=== PATIENT | male | born 1960 | race Caucasian/White ===

== ENCOUNTER → 2017-04-05 | Day surgery (SDC) | payer OTHER ==
[2017-03-31 14:15] VITALS: BMI 36.0
--- NOTE | 2017-03-31 14:52 | PAT Medication Instructions ---
Service Date Mar 31, 2017. Current Home Medication List Fluticasone Propionate (Nasal) (Flonase Allergy Relief), 1 DOSE BRYAN UD PRN for SINUS CONGESTION Gemfibrozil (Lopid), 1 TAB PO BID Hydrochlorothiazide (Hydrochlorothiazide), 12.5 MG PO QAM Omeprazole (Prilosec), 40 MG PO QAM Medication Instructions For Your Scheduled Surgery - Hold the following medications 24 hours prior to surgery: Gemfibrozil (Lopid), 1 TAB PO BID - Hold the following medications the morning of surgery: Hydrochlorothiazide (Hydrochlorothiazide), 12.5 MG PO QAM - Take the following medications the morning of surgery with a sip of water: Omeprazole (Prilosec), 40 MG PO QAM Fluticasone Propionate (Nasal) (Flonase Allergy Relief), 1 DOSE BRYAN UD PRN for SINUS CONGESTION (if needed) If you have any questions please call us at [phone] or [phone] or [phone]
[~2017-04-05] VITALS: Ht 177.8 cm; Wt 113.2 kg
[~2017-04-05] MED LIST: ACETAMINOPHEN 325 MG TAB PO PRN; ATROPINE SULFATE 0.1 MG/ML 5ML SYR IV PRN; BACITRACIN OINT 15 GM TUBE ONE; BUPIVACAINE 0.5 % 5 MG/1 ML MPF 30ML VIAL ONE; CEFAZOLIN 2000 MG/60 ML D5W IV SCH; CEFAZOLIN IV 2,000 MG/60 ML D5W IV ONE; CONRAY 60% 50 ML VIAL ONE; D5W AND 1/2NSS + 20MEQ KCL 1,000 ML IV SCH; DEXAMETHASONE SOD INJ 4 MG/ML VIAL ONE; ESMOLOL HCL 10 MG/ML 10 ML VIAL ONE; EpHEDrine SULFATE INJ 50 MG/ML AMP IV PRN; FENTANYL CITRATE INJ 50 MCG/1 ML 2 ML VIAL ONE; FLUMAZENIL 0.1 MG/1 ML 10 ML VIAL IV PRN; FLUT0.15 NAE; GEMF600T3 PO; GLYCOPYRROLATE INJ 0.2 MG/ML VIAL ONE; HYDR25TA5 PO; HYDROmorphone INJ 1 MG/ML SYR IV PRN; LABETALOL HCL IV 5 MG/ML 20ML IV ONE; LABETALOL HCL IV 5 MG/ML 20ML IV PRN; LACTATED RINGER'S 1000ML 1,000 ML IV SCH; LIDOCAINE HCL 1% 20 ML VIAL ONE; LIDOCAINE HCL 2% 2 ML VIAL (20MG/ML) ONE; MIDAZOLAM HCL 1 MG/ML 2ML VIAL ONE; NALOXONE HCL 0.4 MG/1 ML VIAL/CARP IV PRN; NEOSTIGMINE METHYLSULFATE 5 MG/5 ML SYR ONE; ONDANSETRON INJ 2 MG/ML 2 ML VIAL IV PRN; ONDANSETRON INJ 2 MG/ML 2 ML VIAL ONE; OXYC-57 PO; OXYCODONE/ACETAMINOPHEN 5-325 TAB PO PRN; PRLSR20 PO; PROMETHAZINE HCL INJ 12.5 MG in SODIUM CHLORIDE 0.9% 50ML 50 ML IV PRN; PROPOFOL IV EMULSION 10 MG/ML 20 ML VIAL IV ONE; ROCURONIUM BROMIDE 10 MG/ML 5 ML VIAL IV ONE; SUCCINYLCHOLINE CHLORIDE 20 MG/ML 10 ML VIAL IV ONE
[2017-04-05 06:30] VITALS: BP 157/99; PULSE 110; TEMP 37; O2SAT 94; Ht 177.8 cm; Wt 113.2 kg
--- NOTE | 2017-04-05 07:38 | History & Physical Bridge Note ---
H&P Re-Evaluation Bridge Note: I have examined the patient, reviewed the History & Physical and in the interval since the performance of the History & Physical I have noted the following changes of clinical significance: No changes noted
--- NOTE | 2017-04-05 09:18 | [facility] Post Operative Brief Note ---
Immediate Operative Summary Operative Date Apr 05, 2017. Pre-Operative Diagnosis Chronic Cholecystitis, dysfunction of gallbladder disease Post-Operative Diagnosis same Procedure(s) Performed Laparoscopic Cholecystectomy, lysis of adhesion of omental to liver Surgeon Dr. Marsh Circular Knife Cutter Machine Surgeon(s) surgical pathologist Estimated Blood Loss 10 ML Findings chronic cholecystitis, omental to adhesion liver Fluids (cc crystalloids) 1000ml Specimens a. gallbladder Drains none Anesthesia general Complication(s) None Disposition Recovery Room / PACU
--- NOTE | 2017-04-05 09:26 | Discharge Instructions ---
Discharge Instructions Date of Service Apr 05, 2017. Visit Reason for Visit: Chronic Cholecystitis Discharge Discharge Diagnosis / Problem: S/P laparoscopic cholecystectomy Discharge Goals Goal(s): Decrease discomfort, Improve function Activity Recommendations Activity Limitations: per Instructions/Follow-up section Lifting Limitations: no more than 25 pounds Exercise/Sports Limitations: rest today May Resume Sexual Activity: when tolerated Shower/Bathe: may shower/bathe in 3 days Driving or Machine Use: resume 3 days after discharge Anesthesia . Post Anesthesia Instructions: If you have had General Anesthesia or IV Sedation: * Do not drive today. * Resume driving when surgeon permits. * Do not make important decisions or sign legal documents today. * Call surgeon for: 1. Temperature elevations greater than 101 degrees F. 2. Uncontrollable pain. 3. Excessive bleeding. 4. Persistent nausea and vomiting. 5. Medication intolerance (nausea, vomiting or rash). * For nausea and vomiting use only clear liquids such as: tea, soda, bouillon until nausea subsides, then gradually increase diet as tolerated. * If you have any concerns or questions, call your surgeon's office. If physician is unavailable and it is an emergency, call 911 or go to the nearest emergency room. . Instructions / Follow-Up Instructions / Follow-Up keep the dressing on for 4 days, he can take a shower on 04/09/2017, no driving while taking pain medicine, no heavy lifting > 25 Lbs for 4 weeks. follow up 1 week, Diet Recommendations Recommended Home Diet: resume previous diet Procedures Procedures Performed: Laparoscopic Cholecystectomy, lysis of adhesion of omental to liver Pending Studies Studies pending at discharge: no Medical Emergencies . Who to Call and When: Medical Emergencies: If at any time you feel your situation is an emergency, please call 911 immediately. . Non-Emergent Contact Non-Emergency issues call your: Surgeon Call Non-Emergent contact if: you have a fever, temperature is above 100.5, your pain is not controlled, your pain is worsening, wound has increased drainage, wound has increased redness . . "Provider Documentation" section prepared by Nahid Marsh. . [place] Drug Monitoring Program Search Results: no issues identified
[2017-04-05] MEDS: FENTANYL CITRATE INJ 50 MCG/1 ML 2 ML VIAL IV PRN ×2 (09:35→09:40)
--- NOTE | 2017-04-05 10:20 | Anesthesiology Progress Note ---
Anesthesia Post Op Note Date & Time Apr 05, 2017 at 10:20 Vital Signs Pain Intensity: 3 Vital Signs Past 12 Hours Date Time Temp Pulse Resp B/P (MAP) Pulse Ox O2 Delivery O2 Flow Rate FiO2 04/05/17 10:13 36.4 04/05/17 10:10 76 20 152/84 91 04/05/17 10:10 76 20 04/05/17 10:06 154/92 04/05/17 10:05 94 20 04/05/17 10:05 94 20 92 04/05/17 10:00 75 20 147/88 93 04/05/17 10:00 75 20 04/05/17 09:55 76 19 04/05/17 09:55 74 19 158/85 92 04/05/17 09:50 92 18 04/05/17 09:50 92 18 160/85 93 04/05/17 09:45 104 24 167/96 92 04/05/17 09:45 104 24 04/05/17 09:45 Nasal Cannula 4 04/05/17 09:40 98 22 04/05/17 09:40 97 22 166/92 92 04/05/17 09:36 163/89 04/05/17 09:35 100 29 91 04/05/17 09:35 101 29 04/05/17 09:32 127/81 04/05/17 09:30 116 13 97 04/05/17 09:30 115 13 04/05/17 09:25 100 26 165/96 92 04/05/17 09:25 100 26 04/05/17 09:20 36.5 98 16 180/92 95 Mask 10 04/05/17 06:30 37 110 20 157/99 (118) 94 Room Air Notes Mental Status: alert / awake / arousable, participated in evaluation Pt Amnestic to Procedure: Yes Nausea / Vomiting: adequately controlled Pain: adequately controlled Airway Patency, RR, SpO2: stable & adequate BP & HR: stable & adequate Hydration State: stable & adequate Anesthetic Complications: no major complications apparent
--- NOTE | 2017-04-05 10:29 | OPERATIVE REPORT ---
DATE OF OPERATION: 04/05/2017 PREOPERATIVE DIAGNOSIS: Chronic cholecystitis, dysfunctional gallbladder disease. POSTOPERATIVE DIAGNOSIS: Same. PROCEDURE: Laparoscopic cholecystectomy, lysis adhesions omental to the liver and gallbladder. SURGEON: Nahid Marsh PA-C. ANESTHESIA: General. ESTIMATED BLOOD LOSS: About 10 mL. IV FLUIDS: 1000 mL. FINDINGS: Chronic cholecystitis, dysfunction gallbladder disease, adhesions omental to the liver and gallbladder. COMPLICATIONS: None. INDICATIONS FOR THE PROCEDURE: This is a 56-year-old gentleman who presented with right upper quadrant pain. The patient had HIDA scan showed dysfunctioning gallbladder disease. The patient will be required to do laparoscopic cholecystectomy, possible open, possible cholangiogram. I did talk to the patient about the benefit and risk, alternate procedure. I indicated the risks may include but not limited such as bleeding, infection, injury to common bile duct, injury to bowel, myocardial infarction, anesthesia risk, even . The patient understands. He signed informed consent and I answered all questions. DETAILS OF PROCEDURE: We brought the patient to the OR, put the patient in the supine position. The patient received SCD on bilateral legs to prevent DVT. Also, the patient received 2 grams Ancef IV for prophylactic antibiotic. The patient received general anesthesia without difficulty. The abdomen was prepped and draped in routine sterile fashion. After a timeout, I injected local anesthesia by using 1% lidocaine mixed with 0.5% Marcaine just above umbilical. Then I made about 1.5 cm incision just above umbilical, opened fascia and opened peritoneum under direct vision. I put a Lai trocar in, connected to CO2 to create pneumoperitoneum. Flow rate at 6 liter per minute. Pressure not more than 14 mmHg. Once we get a nice pneumoperitoneum, we put a 10 mm camera in, looked around the abdomen shows no more findings on the stomach, small bowel, large bowel. However, there is significant omental adhesion to the gallbladder and the liver. The gallbladder showed significant gallbladder wall thickening, edema, shows chronic cholecystitis. Then, we put another 3.5 mm trocar on the right upper quadrant. Once all trocars in I put grasper in to hold the base of the gallbladder. First thing I had to lysis the omental adhesions to the liver and the gallbladder. Then, we put another grasper to hold the pouch over the gallbladder, put direction to the latter to exposure the triangle of Calot. The cystic duct was identified and mobilized. I put two 5 mm metal clips on the proximal cystic duct, 1 on the distal cystic duct. Then, I used scissor transection the cystic duct. The cystic artery was identified and mobilized. Then I put two 5 mm metal clips on the proximal cystic artery, 1 on the distal cystic duct, then I used scissors to transection the cystic artery. Then I used Bovie to take down the gallbladder from the liver bed without difficulty. Rechecked no active bleeding, no bile leak from the liver bed. We removed the gallbladder through the catch bag. Then we reinserted Lai trocar in, connected to CO2 to create pneumoperitoneum. Again looked around the abdomen. No active bleeding, no bile leak and no injury to bowel. Then we removed all trocars under direct vision, no active bleeding. The pneumoperitoneum was released. Then I closed the umbilical incision, fascial layer by using #1 Vicryl [id number] x2, closed subcutaneous layer by using 2-0 Vicryl, closed skin by using 4-0 Vicryl continuous running, another 3.5 mm trocar site closed skin by using 4-0 Vicryl. All instrument, needle and sponge count correct x2 at the end of case and then we put the dressing on. The patient tolerated the procedure well. The patient transferred to recovery room in stable condition. After the procedure, I did talk to the patient and patient's family member about the OR finding and procedure we did, they understand. The specimen sent to pathology. I attest to the content of the Intraoperative Record and any orders documented therein. Any exceptions are noted below. TOM
[2017-04-05 10:35] VITALS: BP 109/70; PULSE 96; TEMP 36.9; O2SAT 91
[2017-04-05 11:05] VITALS: BP 112/72; PULSE 93; TEMP 36.9; O2SAT 95
[2017-04-05 11:35] VITALS: BP 119/61; PULSE 71; O2SAT 97
[2017-04-05 12:05] VITALS: BP 115/57; PULSE 100; O2SAT 97
[2017-04-05 12:35] VITALS: BP 128/87; PULSE 94; TEMP 37.1; O2SAT 96
== END | disposition home or self-care (01) ==
LOC: C.ACU 06:16
PROVIDERS: ATTEND Surgery
DX: K81.1 Chronic cholecystitis (principal); K66.0 Peritoneal adhesions (postprocedural) (postinfection); I10 Essential (primary) hypertension; E78.5 Hyperlipidemia, unspecified; K21.0 Gastro-esophageal reflux disease with esophagitis; Z79.899 Other long term (current) drug therapy